=== PATIENT | female | born 1980 | race African-American/Black ===

== ENCOUNTER 2016-09-23 11:34 | Emergency (ER) | payer OTHER ==
[~2016-09-23] VITALS: Ht 167.6 cm; Wt 142.4 kg
[~2016-09-23 11:34] MED LIST: IBUPROFEN 800800 MG PO; LIDOCAINE VISC100 ML MM; NOHOMEMEDICATIONS; NORCO 5-325 TA1 EACH PO; PHENTERMINE H37.5 MG PO
[2016-09-23 11:52] LABS: URINE BILIRUBIN NEGATIVE (Negative); URINE BLOOD TRACE (Negative); URINE COLOR YELLOW; URINE GLUCOSE-RANDOM* NEGATIVE (Negative); URINE KETONES NEGATIVE (Negative); URINE NITRITE NEGATIVE (Negative); URINE PROTEIN (DIPSTICK) NEGATIVE (Negative); URINE UROBILINOGEN 0.2 E.U./dl (0.2-1.0)
[2016-09-23 12:23] LABS: ABSOLUTE NEUTROPHILS 2.5 thou/uL (1.4-8.2); BASOPHILS 0.9 % (0.0-2.0); EOSINOPHILS 10.9 % (0.0-3.0); LYMPHOCYTES 34.7 % (24.0-44.0); MCH 29.7 pg (26.0-34.0); MCHC 33.2 g/dL (28.0-37.0); MCV 89.3 fL (80.0-100.0); MONOCYTES 11.1 % (1.0-8.0); PLATELET COUNT 204 thou/uL (150-400); POLYS 42.4 % (36.0-66.0); RBC 4.37 mil/uL (4.20-5.00); RDW 13.9 % (10.5-14.5); WBC 5.9 thou/uL (4.0-11.0)
[2016-09-23 12:27] LABS: MANUAL DIFF NO
[2016-09-23 12:30] LABS: CALCIUM 8.5 mg/dL (8.5-10.1); CREATININE 1.1 mg/dL (0.6-1.0); POTASSIUM 4.1 mmol/L (3.5-5.1)
[2016-09-23 12:41] LABS: ALBUMIN 3.2 g/dL (3.4-5.0); TOTAL BILIRUBIN 0.3 mg/dL (<0.1-1.0); TOTAL PROTEIN 7.3 g/dL (6.4-8.2)
[2016-09-23] MEDS ORDERED: NAPROSYN500 MG PO (14:22)
[2016-09-23 14:25] VITALS: BP 106/61
[2016-09-24 15:12] LABS: CHLAMYDIA TRACHOMATIS-PCR Negative (Negative); NEISSERIA GONORRHEA-PCR Negative (Negative)
== END 2016-09-23 14:25 | disposition home or self-care (01) ==
LOC: ER 11:34
PROVIDERS: Nurse Practitioner Family
DX: R10.2 Pelvic and perineal pain (principal); R35.0 Frequency of micturition; F17.210 Nicotine dependence, cigarettes, uncomplicated; F10.99 Alcohol use, unspecified with unspecified alcohol-induced disorder